=== PATIENT | male | born 1930 | race Caucasian/White ===

== ENCOUNTER 2017-10-26 05:57 | Observation (INO) | payer MEDICARE ==
[2017-10-26] MEDS ORDERED: Aspirin 81 mg CHEW TAB* 81 MG TAB.CHEW PO ONE (06:19)
[2017-10-26 06:35] LABS: ABS Basophils 0 10^3/ul (0-0.2); ABS Eosinophils 0.3 10^3/ul (0-0.6); ABS Lymphocytes 0.6 10^3/ul (1.0-4.8); ABS Monocytes 0.7 10^3/ul (0-0.8); ABS Neutrophils 3.2 10^3/ul (1.5-7.7); ABS Nucleated RBC 0 10^3/ul; Eosinophil % 5.5 % (0-6); Hematocrit 38 % (42-52); Hemoglobin 13.1 g/dl (14.0-18.0); Lymphocyte % 12.4 % (25-47); Mean Corpuscular HGB Conc 35 g/dl (31-36); Mean Corpuscular Hemoglobin 33 pg (27-31); Mean Corpuscular Volume 94 fL (80-94); Mean Platelet Volume 7.6 um3 (7.4-10.4); Nucleated Red Blood Cells % 0; Platelet Count 137 10^3/ul (150-450); Red Blood Count 4.01 10^6/ul (4.00-5.40); Red Cell Distribution Width 14 % (10.5-15); White Blood Count 4.7 10^3/ul (3.5-10.8)
[2017-10-26 06:39] LABS: INR 0.89 (0.77-1.02)
[2017-10-26 06:50] LABS: EGFR Non-African American 81.2 (>60)
--- NOTE | 2017-10-26 07:07 | ED ---
Progress - Progress Note Progress Note: This pt was signed out by Dr. Ng, pending disposition, awaiting labs and chest XR. Pt is an 87 y/o male presenting to [facility] c/o left sided chest pain. 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 PMHx of cardiac stents x4. Last stent was placed on 08/16/2017. Chest XR, as read by radiologist IMPRESSION: Evidence of atelectasis or scarring at the lateral left lung base in this otherwise nonacute chest x-ray. Dr. Cameron has reviewed this report. Re-Evaluation - Re-Evaluation First Eval Re-Evaluation Time: 08:29 Comment: Reviewed lab and XR results with the pt. He requested I speak with his resident medical officer. Course/Dx - Course Course Of Treatment: Mr. Pascual presented to the emergency department on a previous shift complaining of waking up at 0400 hrs. with left-sided chest pain. He went to chest [facility] at 2 took a nitroglycerin which helped but did not completely take it away and when I evaluated he does complain of chest pain. He was also given an aspirin here in the emergency department and is on Plavix which he takes at night. He states that the pain was very mild but he came to the emergency department because he has had mild chest pain each time that he received a stent and he has 5 stents. I spoke with his marine cargo specialist, Dr. Kang in [facility] and he reiterated that the patient had only mild symptomatology but had significant disease. Dr. Bass has been considering a repeat stress test recently. For that reason the hospitalist was contacted for evaluation workup at this point. - Diagnoses Provider Diagnoses: Unstable angina - Provider Notifications Discussed Care Of Patient With: director of marketing communications Time Discussed With Above Provider: 09:14 Instructed by Provider To: Other - I discussed pt care with pt's resident medical officer from [facility]. [09:30] I discussed with Dr. Murphy, hospitalist, who accepted the pt for admission. Discharge - Sign-Out/Discharge Documenting (check all that apply): Discharge/Admit/Transfer - Admit, Receiving Sign-Out Receiving patient FROM: Shanna Ng - Discharge Plan Condition: Stable Disposition: ADMITTED TO [facility] Referrals: No Primary Care Phys,NOPCP [Primary Care Provider] - - Billing Disposition and Condition Condition: STABLE Disposition: Admitted to [facility]
--- NOTE | 2017-10-26 07:10 | ED ---
Miky Carson Tariq, scribed for Shanna Ng MD on 10/26/17 at 0651 . HPI Chest Pain - HPI Summary HPI Summary: A 87 y/o male presents to ED c/o left-sided chest pain. According to the patient , he exhibited left-sided chest pain around 0400. Additonally, he had mild right sided chest pain, however he noted, "I am 87. I have pains everywhere". Currently, the pain is still present but has decreased gradually to a severity of 1-2/10. The patient noted that the pain has gradually decreased after taking one nitroglycerin prior to arrival. 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 PMHx of stents (4 or 5). Last stend was placed on 08/16/2017. No PMHx of DC. - History of Current Complaint Chief Complaint: EDChestPainROMI Time Seen by Provider: 10/26/17 06:13 Hx Obtained From: Patient Onset/Duration: Started Hours Ago - 0400, Still Present - 1-2. Gradually decreased. Timing: Constant - Gradually decreasing in severity Initial Severity: Mild Current Severity: Mild Pain Intensity: 2 Pain Scale Used: 0-10 Numeric Chest Pain Location: Discrete at: - Left side, however noted slight chest pain on right side. Chest Pain Radiates: No Aggravating Factor(s): Nothing Alleviating Factor(s): Nothing Associated Signs and Symptoms: Positive: Chest Pain - Allergy/Home Medications Allergies/Adverse Reactions: Allergies Allergy/AdvReac Type Severity Reaction Status Date / Time No Known Allergies Allergy Verified 10/23/13 13:27 PMH/Surg Hx/FS Hx/Imm Hx Endocrine/Hematology History: Denies: Hx Diabetes Cardiovascular History: Reports: Hx Hypertension - Cancer History Cancer Type, Location and Year: prostate - Surgical History Surgery Procedure, Year, and Place: Depuytren's contracture surgery right hand, spinal stenosis surgery (lumbar) 03/31, cardiac stent x1 in 1999. Infectious Disease History: No Infectious Disease History: Denies: Traveled Outside the [place] in Last 30 Days - Family History Known Family History: Positive: Other - DC, Skin cancer - Social History Alcohol Use: Weekly Alcohol Amount: 2-3 glasses of wine per week Substance Use Type: Reports: None Smoking Status (MU): Never Smoked Tobacco Review of Systems Negative: Fever Positive: Chest Pain All Other Systems Reviewed And Are Negative: Yes Physical Exam - Summary Physical Exam Summary: VITAL SIGNS: Reviewed. GENERAL: Patient is a well-developed and nourished MALE who is lying comfortable in the stretcher. Patient is not in any acute respiratory distress. HEAD AND FACE: No signs of trauma. No ecchymosis, hematomas or skull depressions. No sinus tenderness. EYES: PERRLA, EOMI x 2, No injected conjunctiva, no nystagmus. EARS: Hearing grossly intact. Ear canals and tympanic membranes are within normal limits. MOUTH: Oropharynx within normal limits. NECK: Supple, trachea is midline, no adenopathy, no JVD, no carotid bruit, no c- spine tenderness, neck with full ROM. CHEST: Symmetric, no tenderness at palpation LUNGS: Clear to auscultation bilaterally. No wheezing or crackles. CVS: Regular rate and rhythm, S1 and S2 present, no murmurs or gallops appreciated. ABDOMEN: Soft, non-tender. No signs of distention. No rebound no guarding, and no masses palpated. Bowel sounds are normal. EXTREMITIES: FROM in all major joints, no edema, no cyanosis or clubbing. NEURO: Alert and oriented x 3. No acute neurological deficits. Speech is normal and follows commands. SKIN: Dry and warm Triage Information Reviewed: Yes Vital Signs On Initial Exam: Initial Vitals Temp Pulse Resp BP Pulse Ox 97.7 F 61 20 114/68 93 10/26/17 05:58 10/26/17 05:58 10/26/17 05:58 10/26/17 05:58 10/26/17 05:58 Vital Signs Reviewed: Yes Diagnostics - Vital Signs Vital Signs Temp Pulse Resp BP Pulse Ox 10/26/17 05:58 97.7 F 61 20 114/68 93 - Laboratory Lab Results: Lab Results 10/26/17 10/26/17 Range/Units 06:20 06:20 WBC 4.7 (3.5-10.8) 10^3/ul RBC 4.01 (4.00-5.40) 10^6/ul Hgb 13.1 L (14.0-18.0) g/dl Hct 38 L (42-52) % MCV 94 (80-94) fL MCH 33 H (27-31) pg MCHC 35 (31-36) g/dl RDW 14 (10.5-15) % Plt Count 137 L (150-450) 10^3/ul MPV 7.6 (7.4-10.4) um3 Neut % (Auto) 67.5 (38-83) % Lymph % (Auto) 12.4 L (25-47) % Mercer % (Auto) 13.8 H (0-7) % Eos % (Auto) 5.5 (0-6) % Baso % (Auto) 0.8 (0-2) % Absolute Neuts (auto) 3.2 (1.5-7.7) 10^3/ul Absolute Lymphs (auto) 0.6 L (1.0-4.8) 10^3/ul Absolute Monos (auto) 0.7 (0-0.8) 10^3/ul Absolute Eos (auto) 0.3 (0-0.6) 10^3/ul Absolute Basos (auto) 0 (0-0.2) 10^3/ul Absolute Nucleated RBC 0 10^3/ul Nucleated RBC % 0 INR (Anticoag Therapy) 0.89 (0.77-1.02) APTT 29.7 (26.0-36.3) seconds Result Diagrams: 10/26/17 06:20 07 06:20 Lab Statement: Any lab studies that have been ordered have been reviewed, and results considered in the medical decision making process. - EKG 0609 Cardiac Rate: Bradycardia - 55 BPM EKG Rhythm: Sinus Bradycardia EKG Interpretation: NON-SPECIFIC T-WAVE CHANGES Re-Evaluation - Re-Evaluation First Eval Re-Evaluation Time: 08:29 Comment: Reviewed lab and XR results with the pt. He requested I speak with his medical office assistant instructor. Chest Pain Course/Dx - Diagnoses Provider Diagnoses: Unstable angina Discharge - Sign-Out/Discharge Documenting (check all that apply): Sign-Out Patient Signing out patient TO: Darrell Cameron Receiving patient FROM: Shanna Ng - Discharge Plan Condition: Stable Disposition: ADMITTED TO [facility] - Billing Disposition and Condition Condition: STABLE Disposition: Admitted to [facility] The documentation as recorded by the Miky callahan Tariq, SCRIBE accurately reflects the service I personally performed and the decisions made by Hernandez dotson Abdul, MD.
--- NOTE | 2017-10-26 08:18 | RAD ---
INDICATION: Chest pain COMPARISON: None. TECHNIQUE: Single AP portable view of the chest was obtained. FINDINGS: Image quality is compromised due to the relative inferiority of a portable chest x-ray. The heart and mediastinum exhibit normal size and contour. Linear density at the lateral left lung base could be atelectasis or scarring. The lungs are otherwise grossly clear. There is no evidence of a large pleural effusion. Visualized bones are normal for the patient's age. IMPRESSION: Evidence of atelectasis or scarring at the lateral left lung base in this otherwise nonacute chest x-ray.
[2017-10-26] MEDS ORDERED: Nitroglycerin TAB 0.4 MG* 0.4 MG TAB SL ONE (10:56)
[2017-10-26] MEDS ORDERED: Atorvastatin* 10 MG TAB PO SCH ×2 (11:00→21:00)
[2017-10-26] MEDS ORDERED: Metoprolol Succinate XL TAB* 50 MG PO SCH ×2 (11:00→21:00)
[2017-10-26] MEDS ORDERED: Silodosin(NF) 8 MG CAP PO SCH ×2 (11:00→21:00)
--- NOTE | 2017-10-26 11:02 | ADMNOTE ---
Subjective Date of Service: 10/26/17 Interval History: ADMISSION HISTORY AND PHYSICAL EXAM: Allergies Allergy/AdvReac Type Severity Reaction Status Date / Time No Known Allergies Allergy Verified 10/23/13 13:27 Home Medications Medication Instructions Recorded Confirmed Type Atorvastatin* [Lipitor 10 MG*] 10 mg PO DAILY 10/23/13 10/26/17 History Furosemide TAB* [Lasix TAB*] 20 mg PO DAILY PRN 10/23/13 10/26/17 History Levothyroxine TAB* [Synthroid 25 25 mcg PO DAILY 10/23/13 10/26/17 History MCG TAB*] Metoprolol Succinate [Metoprolol 50 mg PO DAILY 10/23/13 10/26/17 History Succinate ER] Multiple Vitamins W/ Minerals 1 tab PO DAILY 10/23/13 10/26/17 History [Centrum Silver] Nabumetone TAB* [Relafen TAB*] 750 mg PO BEDTIME PRN 10/23/13 10/26/17 History Pramipexole TAB* [Mirapex TAB*] 75 mcg PO BEDTIME 10/23/13 10/26/17 History Silodosin(NF) [Rapaflo(NF)] 8 mg PO DAILY 10/23/13 10/26/17 History Tadalafil [Cialis] 5 mg PO DAILY PRN 10/23/13 10/26/17 History amLODIPine TAB* [Norvasc TAB*] 2.5 mg PO DAILY 10/23/13 10/26/17 History HPI: The patient woke up at 4 AM today with chest pain. He took 1 SL NTG and 1 Imdur with partial relief of pain. He states he has this pain several times a week, sometimes while swimming. He thought today's pain was somewhat worse and he was scared. 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 Lives with his who is his SDM. 3 children, many GC. Smoked cigars in the past. No alcohol abuse Past Medical History: Findings - Prostate ca with external RT, surgery for ankle fx, Duputryen's, spinal stenosis. 5 stents, last on 08/16/17 at [facility]. Review of Systems - Measurements Intake and Output: Intake and Output Last 24 Hours 0710/25/17 10/26/17 10/27/17 06:59 06:59 06:59 06:59 Weight 190 lb - Review of Systems Constitutional Symptoms: Negative: Weight Gain, Weight Loss, Weakness, Fatigue, Fever, Night Sweats, Unexplained Falls, Other Dermatology: Positive: Normal HEENT: Positive: Normal Eyes: Positive: Normal Thyroid: Positive: Normal Pulmonary: Positive: Normal Cardiology: Positive: Chest Pain Gastroenterology: Positive: Normal Genital - Urinary: Positive: Normal Musculoskeletal: Positive: Low Back Pain - from spinal stenosis. Endocrinology: Positive: Normal Hematologic/Lymphatic: Negative: Anemia, Easy Brusing, Hx Leukemia, Hx Lymphoma, Use of Anticoagulant, Use of Antiplatelet Drugs, Other Neurology: Positive: Normal Allergic/Immunologic: Negative: Hx Anaphylaxis, Hx Angioedema, Hx Environmental, Hx Seasonal, Athsma, Hx HIV, Immunocompromise, Swollen Glands LymphNodes, Other Objective Active Medications: Atorvastatin Calcium (Lipitor*) 10 mg PO DAILY [facility] Enoxaparin Sodium (Lovenox(*)) 40 mg SUBCUT Q24H [facility] Levothyroxine Sodium (Synthroid Tab*) 25 mcg PO DAILY [facility] Nitroglycerin (Nitroglycerin Tab 0.4 Mg*) 0.4 mg SL .EVERY 5 MIN PRN ONE Stop: 10/26/17 10:57 Non-Formulary Medication (Metoprolol Succinate [Metoprolol Succinate Er]) 50 mg PO DAILY [facility] Pramipexole Dihydrochloride (Mirapex Tab*) 0.075 mg PO BEDTIME EMILY Silodosin (Rapaflo(Nf)) 8 mg PO DAILY [facility] Vital Signs - 8 hr 10/26/17 10/26/17 10/26/17 05:58 06:12 06:25 Temperature 97.7 F Pulse Rate 61 61 56 Respiratory 20 14 17 Rate Blood Pressure 114/68 118/80 124/68 (mmHg) O2 Sat by Pulse 93 94 93 Oximetry 10/26/17 10/26/17 10/26/17 06:42 07:00 07:01 Temperature Pulse Rate 50 50 50 Respiratory 17 17 Rate Blood Pressure 115/67 (mmHg) O2 Sat by Pulse 93 96 Oximetry 10/26/17 10/26/17 10/26/17 07:02 07:12 07:42 Temperature Pulse Rate 47 46 47 Respiratory 13 10 20 Rate Blood Pressure 118/62 119/72 116/68 (mmHg) O2 Sat by Pulse 96 97 96 Oximetry 10/26/17 10/26/17 10/26/17 08:00 08:12 08:45 Temperature Pulse Rate 46 47 52 Respiratory 12 14 21 Rate Blood Pressure 112/62 109/54 (mmHg) O2 Sat by Pulse 94 94 94 Oximetry 10/26/17 10/26/17 09:00 09:13 Temperature Pulse Rate 49 50 Respiratory 18 20 Rate Blood Pressure 112/73 (mmHg) O2 Sat by Pulse 94 93 Oximetry Oxygen Devices in Use Now: None Appearance: Alert, partly up on ED stretcher. In good spirits. Looks comfortable. Eyes: No Scleral Icterus Neck: NL Appearance and Movements; NL JVP, No Thyroid Enlargement, Masses Respiratory: Symmetrical Chest Expansion and Respiratory Effort, Clear to Auscultation, Clear to Percussion Cardiovascular: NL Sounds; No Murmurs; No JVD, RRR, No Edema, - Skin: No Rash or Ulcers, No Nodules or Sclerosis, - Neurological: Alert and Oriented x 3, NL Sensation Result Diagrams: 10/26/17 06:20 10/26/17 06:20 Additional Lab and Data: Lab Results 10/26/17 10/26/17 Range/Units 06:20 06:20 WBC 4.7 (3.5-10.8) 10^3/ul RBC 4.01 (4.00-5.40) 10^6/ul Hgb 13.1 L (14.0-18.0) g/dl Hct 38 L (42-52) % MCV 94 (80-94) fL MCH 33 H (27-31) pg MCHC 35 (31-36) g/dl RDW 14 (10.5-15) % Plt Count 137 L (150-450) 10^3/ul MPV 7.6 (7.4-10.4) um3 Neut % (Auto) 67.5 (38-83) % Lymph % (Auto) 12.4 L (25-47) % [place]y % (Auto) 13.8 H (0-7) % Eos % (Auto) 5.5 (0-6) % Baso % (Auto) 0.8 (0-2) % Absolute Neuts (auto) 3.2 (1.5-7.7) 10^3/ul Absolute Lymphs (auto) 0.6 L (1.0-4.8) 10^3/ul Absolute Monos (auto) 0.7 (0-0.8) 10^3/ul Absolute Eos (auto) 0.3 (0-0.6) 10^3/ul Absolute Basos (auto) 0 (0-0.2) 10^3/ul Absolute Nucleated RBC 0 10^3/ul Nucleated RBC % 0 INR (Anticoag Therapy) 0.89 (0.77-1.02) APTT 29.7 (26.0-36.3) seconds Assess/Plan/Problems-Billing Assessment: - Patient Problems (1) Chest pain Current Visit: Yes Status: Acute Code(s): R07.9 - CHEST PAIN, UNSPECIFIED SNOMED Code(s): 50321120 Comment: Known CAD. Hx c/w angina. ECG wnl. Second troponin pending. (2) Hypothyroid Current Visit: Yes Status: Acute Code(s): E03.9 - HYPOTHYROIDISM, UNSPECIFIED SNOMED Code(s): 14881350 Comment: TSH wnl 10/26/17.
[2017-10-26] MEDS: Levothyroxine TAB* 25 MCG TAB PO SCH (12:36)
[2017-10-26] MEDS: Enoxaparin(*) 40 MG/0.4 ML SYR SUBCUT SCH (12:52)
[2017-10-26] MEDS: Acetaminophen TAB* 325 MG PO PRN ×2 (15:21→23:35)
[2017-10-26] MEDS ORDERED: traZODone TAB* 50 MG TAB PO PRN (20:44)
[2017-10-26] MEDS ORDERED: Pramipexole TAB* 0.5 MG PO SCH (21:00)
[2017-10-27] MEDS: Levothyroxine TAB* 25 MCG TAB PO SCH (05:32)
[2017-10-27] MEDS: Enoxaparin(*) 40 MG/0.4 ML SYR SUBCUT SCH (11:21)
--- NOTE | 2017-10-27 11:39 | RAD ---
HISTORY: chest pain COMPARISONS: None TECHNIQUE: A 2 day stress/rest myocardial perfusion study was performed, with exercise stress. The exercise portion was performed using the Jeison protocol, for a total METs of 7. The stress portion was monitored by Dr. Cevallos. Gated SPECT imaging was performed, with CT-based attenuation correction DOSE: Stress: Technetium 99m tetrofosmin, 25.34 millicuries, injected at 10:06 AM on October 27, 2017 Rest: Technetium 99m tetrofosmin, 25 millicuries, injected at 12:30 PM on October 26, 2017 Pharmacologic agent: None FINDINGS: CARDIAC MONITORING: Peak heart rate of 1 23 bpm, 91% of predicted EF: 63% with stress, 68% with rest TID: 1.1 MOTION: Normal motion, with normal wall thickening. PERFUSION: There are no fixed or reversible perfusion defects. Small defects of the distal septum and lateral wall result on attenuation correction imaging.. OTHER: None IMPRESSION: NO DEFINITE FIXED OR REVERSIBLE PERFUSION DEFECTS ASSESSMENT: LOW RISK. Based on imaging criteria from ACC/AHA 2002. Guideline Update for the Management of Patient's with Chronic Stable Angina, table 23. Noninvasive Risk Stratification.
[2017-10-27 12:37] VITALS: BP 156/66
--- NOTE | 2017-10-28 04:15 | DS ---
DISCHARGE SUMMARY: DATE OF ADMISSION: DATE OF DISCHARGE: 10/27/17 HOSPITAL COURSE: This 87-year-old man presented with chest pain, awoken, by 4 a.m. he took 1 nitroglycerin, he took an Imdur, which he usually does when he gets chest pain. He says he gets chest pain several times a week. This seemed a little worse and he was scared this time. I note he has recently had stenting of his heart on 08/16/17 at [facility]. The rest of the history and physical exam was detailed in his admission note. The patient continues to have chest pain, although to a lesser degree throughout his hospital stay. He had two troponin levels, both of which were normal. EKG remained normal on repeat. He seemed to be quite content to go home. My clinical impression is that this pain is not cardiac as it is quite persistent without any elevation of troponin or change in his EKG, and seemed to be diminishing slowly over a 12-hour period. The patient had a treadmill stress test, he achieved 7 METS. He had normal ejection fraction. There were no wall motion abnormalities. There were no fixed or reversible ischemic areas seen. FINAL DIAGNOSES: 1. Chest pain. 2. Known coronary artery disease. 3. Hypothyroidism. 4. Hypertension. DISCHARGE MEDICATIONS: 1. Amlodipine 2.5 mg daily. 2. Silodosin 8 mg daily. 3. Metoprolol succinate 50 mg daily. 4. Furosemide 20 mg p.r.n. 5. Pramipexole 0.75 mg at bedtime. 6. Nabumetone 750 mg at bedtime p.r.n. 7. Tadalafil 5 mg daily p.r.n. 8. Levothyroxine 25 mcg daily. 9. Atorvastatin 10 mg daily. 10. Multivitamin with mineral daily. [id number]/[facility] #: [id number] [facility]
== END 2017-10-27 13:31 | disposition home or self-care (01) ==
LOC: ED 05:57 → MEDTELE 10:46
PROVIDERS: ADMIT Internal Medicine; ATTEND Internal Medicine
DX: R07.9 Chest pain, unspecified (principal); I25.10 Atherosclerotic heart disease of native coronary artery without angina pectoris; E03.9 Hypothyroidism, unspecified; I10 Essential (primary) hypertension; Z79.899 Other long term (current) drug therapy; M72.0 Palmar fascial fibromatosis [Dupuytren]; R00.1 Bradycardia, unspecified
CPT/HCPCS: 36415; 71045; 78452; 80053; 83735; 83880; 84484; 85025; 85610; 85730; 93005; 93017; 96372; 99283; A9270-GY; A9502; G0378; J1650